=== PATIENT | female | born 1960 | race African-American/Black ===

== ENCOUNTER 2018-12-05 17:58 | Emergency (ER) | payer MEDICARE, MEDICAID ==
[2018-12-05] MEDS ORDERED: OXYCODONE-ACETAMINOPHEN 5-325 MG TABLET PO ONE (18:58)
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
[2018-12-05 20:18] VITALS: BP 158/76
== END 2018-12-05 20:22 | disposition home or self-care (01) ==
LOC: ER 17:58
PROC: 2W3MXYZ Immobilization of Left Lower Extremity using Other Device (ICD-10-PCS; principal; 2018-12-05)
DX: S82.142A Displaced bicondylar fracture of left tibia, initial encounter for closed fracture (principal); W19.XXXA Unspecified fall, initial encounter; Y93.89 Activity, other specified; Y92.832 Beach as the place of occurrence of the external cause; Y99.9 Unspecified external cause status; E78.00 Pure hypercholesterolemia, unspecified; I10 Essential (primary) hypertension; K21.9 Gastro-esophageal reflux disease without esophagitis; Z90.710 Acquired absence of both cervix and uterus
CPT/HCPCS: 99283; 73564; L1830; A9270

== ENCOUNTER 2018-12-28 13:11 | Emergency (ER) | payer MEDICARE, MEDICAID ==
--- NOTE | 2018-12-28 15:30 | ER Document Report ---
HPI - HPI Time Seen by Provider: 12/28/18 14:26 Pain Level: 5 Notes: 58-year-old female presents to ED for evaluation of left knee pain, patient states that she had a evaluation of her left knee approximately 2 weeks ago, suspected questionable fracture in the emergency room, on reevaluation with her primary care provider, who felt that she did not have a fracture of her left knee and advised her to stop using walker and cane per patient for ambulation purposes. patient recently has been ambulating with a walker and cane which has become progressively worse in last couple of days. Denies fevers, chills, chest pain,palpitations, shortness of breath, dyspnea, nausea, vomiting, diarrhea, abdominal pain, hematuria, blurred vision, double vision, loss of vision, speech changes, LH, dizziness, syncope, headaches, wheezing, ST, URI, neck pain, weakness, bowel or bladder dysfunction, saddle anesthesia, numbness or tingling in bilateral upper or lower extremities equally, muscle paralysis, weakness in bilateral upper or lower extremities equally or rash. - MUSCULOSKELETAL Musculoskeletal: REPORTS: Extremity pain - left leg Past Medical History - General Information source: Patient - Social History Smoking Status: Unknown if Ever Smoked Frequency of alcohol use: None Drug Abuse: None Family History: Reviewed & Not Pertinent Patient has suicidal ideation: No Patient has homicidal ideation: No - Past Medical History Cardiac Medical History: Reports: Hx Hypercholesterolemia, Hx Hypertension Renal/ Medical History: Denies: Hx Peritoneal Dialysis GI Medical History: Reports: Hx Gastroesophageal Reflux Disease Past Surgical History: Reports: Hx Hysterectomy Vertical Provider Document - CONSTITUTIONAL Agree With Documented VS: Yes Notes: PHYSICAL EXAMINATION: GENERAL: Well-appearing, well-nourished and in no acute distress. HEAD: Atraumatic, normocephalic. EYES: Pupils equal round and reactive to light, extraocular movements intact, conjunctiva are normal. ENT: Nares patent, oropharynx clear without exudates. Moist mucous membranes. NECK: Normal range of motion, supple without lymphadenopathy LUNGS: Breath sounds clear to auscultation bilaterally and equal. No wheezes rales or rhonchi. HEART: Regular rate and rhythm without murmurs ABDOMEN: Soft, nontender, nondistended abdomen. No guarding, no rebound. No masses appreciated. Female : deferred Musculoskeletal: Normal range of motion, no pitting or edema. No cyanosis. left knee pain with palpation to lateral aspect of knee with noted swelling. negative monique's sign. anterior and posterior drawer test negative. noted pain with left . Dtr + 2 in BLE. Full motor and sensory function to BLE equally. No open wounds. No induration or drainage. Strength 5 out of 5 bilaterally equally. Ankle examination normal. Squeeze test negative. Hip examination normal. Pulses + 2 bilaterally and equally.negative squeeze bilaterally and equally. NEUROLOGICAL: Cranial nerves grossly intact. Normal speech, normal gait. Normal sensory, motor exams PSYCH: Normal mood, normal affect. SKIN: Warm, Dry, normal turgor, no rashes or lesions noted. - INFECTION CONTROL TRAVEL OUTSIDE OF THE [place] IN LAST 30 DAYS: No Course - Re-evaluation Re-evalutation: 12/28/18 17:08 58-year-old female afebrile visit no distress, nurse's notes reviewed. Patient is ambulating with cane. Patient has had these progressive symptoms. There is noted bone spurring at joints in the mild medial and patellofemoral compartment with joint space narrowing, noted mild bony spurring at the quadriceps that attached to the patella. Is to follow-up with primary care provider within the next 24 hours as well as vessel specialist within the 24 hours. Apply heat 20 minutes on 20 minutes off several times a day, keep elevated above level of heart, wear immobilizer and Nicholas bandage as directed, patient does state that she has a walker at home she is currently ambulating with a cane. Advised if any symptoms become worse to return to the emergency room immediately. After performing a Medical Screening Examination, I estimate there is LOW risk for OPEN FRACTURE, COMPARTMENT SYNDROME, TENDON RUPTURE, ACUTE NEUROVASCULAR INJURY, or RETAINED FOREIGN BODY, thus I consider the discharge disposition reasonable. Also, there is no evidence or peritonitis, sepsis, or toxicity. I have reevaluated this patient multiple times and no significant life threatening changes are noted. The patient and I have discussed the diagnosis and risks, and we agree with discharging home with close follow-up with the understanding that symptoms and presentations can change. We also discussed returning to the Emergency Department immediately if new or worsening symptoms occur. We have discussed the symptoms which are most concerning (e.g., changing or worsening pain, fever, numbness, weakness, cool or painful digits) that necessitate immediate return. - Vital Signs Vital signs: Temp Pulse Resp BP Pulse Ox 98.3 F 73 18 131/74 H 95 12/28/18 13:19 12/28/18 13:19 12/28/18 13:19 12/28/18 13:19 12/28/18 13:19 Discharge - Discharge Clinical Impression: Left knee pain Condition: Stable Disposition: HOME, SELF-CARE Instructions: Suspected Internal Knee Injury ([facility]), Knee Effusion ([facility]), Knee Exercise Program ([facility]), Knee Immobilizing Splint ([facility]), Sprained Knee ([facility]) Additional Instructions: X-ray of your knees showed persistent knee joint effusion, there is concern for internal derangement, no finite displaced fracture seen by plain films today. Referrals: SALTY SADLER MD [ACTIVE STAFF] - Follow up in 3-5 days ANA PETTY MD [COMMUNITY BASED STAFF] - Follow up in 3-5 days
--- NOTE | 2018-12-28 16:15 | RADIOLOGY REPORT (SQ) ---
EXAM DESCRIPTION: KNEE LEFT 4 VIEW COMPLETED DATE/TIME: 12/28/2018 3:43 pm REASON FOR STUDY: left knee pain, questionable fx COMPARISON: Left knee 12/05/2018 NUMBER OF VIEWS: Four views. TECHNIQUE: AP, lateral, and both oblique radiographic images acquired of the left knee. LIMITATIONS: None. FINDINGS: MINERALIZATION: Osteopenic BONES: Prior films were reviewed. Posterior left aspect of the lateral tibial plateau on today's aspen dy demonstrates minimal bony sclerosis and articular surface irregularity without fracture. Mild bony spurring at the quadriceps attachment to the patella. JOINT: Small suprapatellar knee joint effusion. Mild medial and patellofemoral compartment joint spa ce narrowing and bony spurring. SOFT TISSUES: No soft tissue swelling. No radio-opaque foreign body. OTHER: No other significant finding. IMPRESSION: Persistent knee joint effusion, worrisome for internal derangement No definite displaced fracture is seen by plain films today. TECHNICAL DOCUMENTATION: JOB ID: [id number] [employer]- All Rights Reserved Reading location - IP/workstation name: [email or web address]
[2018-12-28 17:06] VITALS: BP 140/80
[2018-12-28] MEDS ORDERED: HYDROCODONE/ACETAMINOPHEN 5-325 MG (6 TAB/ER DISP) PO PRN (17:09)
== END 2018-12-28 17:55 | disposition home or self-care (01) ==
LOC: ER 13:11
DX: M25.562 Pain in left knee (principal); M79.605 Pain in left leg; I10 Essential (primary) hypertension
CPT/HCPCS: 99283; 73564; L1830